=== PATIENT | female | born 1955 | race Native Hawaiian/Other Pacific Islander ===

== ENCOUNTER 2016-12-12 08:42 | Day surgery (SDC) | payer OTHER | END 2016-12-12 12:15 | disposition home or self-care (01) | LOC: OR 08:42 | PROC: 08RJ3JZ Replacement of Right Lens with Synthetic Substitute, Percutaneous Approach (ICD-10-PCS; principal; 2016-12-12) | DX: H25.811 Combined forms of age-related cataract, right eye (principal) | CPT/HCPCS: 66984; V2632 ==

== ENCOUNTER 2019-11-12 08:51 | Day surgery (SDC) | payer OTHER | END 2019-11-12 10:29 | disposition home or self-care (01) | LOC: OR 08:51 | PROC: 3E0R33Z Introduction of Anti-inflammatory into Spinal Canal, Percutaneous Approach (ICD-10-PCS; principal; 2019-11-12) | DX: M51.16 Intervertebral disc disorders with radiculopathy, lumbar region (principal) ==

== ENCOUNTER 2019-12-17 07:12 | Day surgery (SDC) | payer OTHER | END 2019-12-17 09:14 | disposition home or self-care (01) | LOC: OR 07:12 | PROC: 3E0R33Z Introduction of Anti-inflammatory into Spinal Canal, Percutaneous Approach (ICD-10-PCS; principal; 2019-12-17) | DX: M51.16 Intervertebral disc disorders with radiculopathy, lumbar region (principal) | CPT/HCPCS: J1100; Q9966 ==

== ENCOUNTER 2020-01-28 07:55 | Day surgery (SDC) | payer OTHER ==
[~2020-01-28] VITALS: Ht 30.5 cm; Wt 0.5 kg
== END 2020-01-28 09:07 | disposition home or self-care (01) ==
LOC: OR 07:55
PROC: 3E0T3BZ Introduction of Anesthetic Agent into Peripheral Nerves and Plexi, Percutaneous Approach (ICD-10-PCS; principal; 2020-01-28)
PROC: 3E0T33Z Introduction of Anti-inflammatory into Peripheral Nerves and Plexi, Percutaneous Approach (ICD-10-PCS; 2020-01-28)
DX: M47.817 Spondylosis without myelopathy or radiculopathy, lumbosacral region (principal)
CPT/HCPCS: J1100; J2001

== ENCOUNTER 2020-02-11 07:51 | Day surgery (SDC) | payer OTHER ==
[~2020-02-11] VITALS: Ht 30.5 cm; Wt 0.5 kg
== END 2020-02-11 08:54 | disposition home or self-care (01) ==
LOC: OR 07:51
PROC: 3E0T3BZ Introduction of Anesthetic Agent into Peripheral Nerves and Plexi, Percutaneous Approach (ICD-10-PCS; principal; 2020-02-11)
PROC: 3E0T33Z Introduction of Anti-inflammatory into Peripheral Nerves and Plexi, Percutaneous Approach (ICD-10-PCS; 2020-02-11)
DX: M47.817 Spondylosis without myelopathy or radiculopathy, lumbosacral region (principal)
CPT/HCPCS: J1100; J2001